=== PATIENT | female | born 1995 | race Caucasian/White ===

== ENCOUNTER 2018-12-08 07:31 | Emergency (ER) | payer BC ==
[2018-12-08 07:49] VITALS: BP 126/91
--- NOTE | 2018-12-08 08:01 | UC ---
Respiratory Complaint HPI - HPI Summary HPI Summary: The patient is a 22-year-old female with a 2 day history of fever chills and sore throat. She also has a cough as well as a mild runny nose. She has had a headache as well as myalgias. Her sore throat is or worse symptom. She has been able to tolerate liquids. He denies any nausea vomiting or diarrhea. - History of Current Complaint Chief Complaint: UCGeneralIllness Stated Complaint: ST Time Seen by Provider: 12/08/18 07:49 Hx Obtained From: Patient Hx Last Menstrual Period: 11/24/17 Onset/Duration: Gradual Onset, Lasting Days Timing: Constant Severity Initially: Moderate Severity Currently: Severe Pain Intensity: 8 Pain Scale Used: 0-10 Numeric Character: Cough: Nonproductive Aggravating Factors: Nothing Alleviating Factors: Nothing Associated Signs And Symptoms: Positive: Fever, Chills, Nasal Congestion. Negative: Dyspnea, Pleuritic Chest Pain, Wheezing, Hemoptysis, Dizziness, Calf Pain, Calf Swelling, Edema, URI, Hoarseness, Sinus Discomfort - Allergies/Home Medications Allergies/Adverse Reactions: Allergies Allergy/AdvReac Type Severity Reaction Status Date / Time cephalexin [From Keflex] Allergy Hives Verified 12/08/18 07:45 coconut Allergy Swelling Verified 12/08/18 07:45 Of Face,Lips,& Throat mushroom Allergy Swelling Verified 12/08/18 07:45 Of Face,Lips,& Throat Home Medications: Home Medications Azelastine HCl 137 mcg NS DAILY 12/08/18 [History Confirmed 12/08/18] Ibuprofen TAB* [Advil TAB*] 200 mg PO Q6H PRN 12/08/18 [History Confirmed ] Norethindrone-E.estradiol-Iron [Junel Fe 12/07 1-20 mg-Mcg] 1 tab PO DAILY [History Confirmed 12/08/18] Sertraline* [Zoloft*] 25 mg PO DAILY 12/08/18 [History Confirmed 12/08/18] PMH/Surg Hx/FS Hx/Imm Hx Previously Healthy: Yes GI/ History: Other Other GI/ History: frequent UTIs/had surgery for reflux - Surgical History Surgical History: Yes Surgery Procedure, Year, and Place: cyst removed left breast. kidney surgery - Family History Known Family History: Negative: Cardiac Disease, Hypertension, Diabetes - Social History Alcohol Use: None Substance Use Type: None Smoking Status (MU): Never Smoked Tobacco Review of Systems All Other Systems Reviewed And Are Negative: Yes Constitutional: Positive: Fever, Chills Skin: Positive: Negative Eyes: Positive: Negative ENT: Positive: Sore Throat Respiratory: Positive: Cough Cardiovascular: Positive: Negative Gastrointestinal: Positive: Negative Genitourinary: Positive: Negative Motor: Positive: Negative Neurovascular: Positive: Negative Musculoskeletal: Positive: Myalgia Neurological: Positive: Headache Psychological: Positive: Negative Physical Exam Triage Information Reviewed: Yes Appearance: Well-Appearing, No Pain Distress, Well-Nourished Vital Signs: Initial Vital Signs Temp 98.3 F 12/08/18 07:45 Pulse 126 12/08/18 07:45 Resp 18 12/08/18 07:45 BP 126/91 12/08/18 07:45 Pulse Ox 98 12/08/18 07:45 Vital Signs Reviewed: Yes Eyes: Positive: Conjunctiva Clear ENT: Positive: Hearing grossly normal, Pharyngeal erythema, Nasal congestion, TMs normal, Tonsillar swelling. Negative: Nasal drainage, Tonsillar exudate, Trismus, Muffled voice, Hoarse voice, Dental tenderness, Sinus tenderness, Uvula midline Neck: Positive: Supple, Nontender, No Lymphadenopathy Respiratory: Positive: Lungs clear, Normal breath sounds, No respiratory distress, No accessory muscle use Cardiovascular: Positive: RRR, No Murmur Musculoskeletal: Positive: ROM Intact, No Edema Neurological: Positive: Alert Psychological Exam: Normal Skin Exam: Normal UC Diagnostic Evaluation - Laboratory O2 Sat by Pulse Oximetry: 98 - normal/not hypoxic Diagnostic Studies Comment: strep (-), influenza (-) Respiratory Course/Dx - Differential Dx/Diagnosis Provider Diagnosis: Acute viral pharyngitis, Elevated BP without diagnosis of hypertension Discharge - Sign-Out/Discharge Documenting (check all that apply): Patient Departure All imaging exams completed and their final reports reviewed: No Studies - Discharge Plan Condition: Stable Disposition: HOME Prescriptions: predniSONE [Prednisone 20 MG TAB] 60 mg PO DAILY #9 tab Patient Education Materials: Pharyngitis (ED) Referrals: No Primary Care Phys,NOPCP [Primary Care Provider] - Additional Instructions: Rest fluids tylenol recheck for worsening symptoms or new symptoms recheck in 3-4 days if not better your strep test was negative your flu test was negative your BP was in the prehypertensive range. Have your MD recheck it the next time you are home - Billing Disposition and Condition Condition: STABLE Disposition: Home
== END 2018-12-08 08:33 | disposition home or self-care (01) ==
LOC: UCCORT 07:31
DX: J02.8 Acute pharyngitis due to other specified organisms (principal); B97.89 Other viral agents as the cause of diseases classified elsewhere; R03.0 Elevated blood-pressure reading, without diagnosis of hypertension; R09.81 Nasal congestion; Z88.1 Allergy status to other antibiotic agents; Z91.018 Allergy to other foods
CPT/HCPCS: 87651; 99201; G0463